=== PATIENT | female | born 1945 | race Hispanic/Latino ===

== ENCOUNTER 2020-03-01 12:40 | Outpatient (CLI) | payer OTHER ==
--- NOTE | 2020-03-01 13:58 | ULT ---
EXAM: PELVIC ULTRASOUND INCLUDING TRANSABDOMINAL AND TRANSVAGINAL EXAMINATIONS: 03/01/20 FINDINGS: The uterus is small measuring 5.5 x 2.5 x 3.0 cm. The endometrium is 0.5 cm. Neither right or left ov fortino are demonstrated. No abscess or abnormal fluid collection. Small amount of fluid is noted withi n the endometrium. IMPRESSION: Small amount of fluid within the endometrium. Overall small uterus. Nonvisualized ovaries. POS: RRE
== END 2020-03-01 12:41 | disposition home or self-care (01) ==
LOC: ULT 12:40
PROVIDERS: ATTEND Nurse Practitioner Family
DX: R10.2 Pelvic and perineal pain (principal); N85.9 Noninflammatory disorder of uterus, unspecified
CPT/HCPCS: 76856